=== PATIENT | male | born 1990 | race Native Hawaiian/Other Pacific Islander ===

== ENCOUNTER 2017-04-30 11:34 | Emergency (ER) | payer OTHER ==
[~2017-04-30] VITALS: Ht 180.3 cm; Wt 77.1 kg
[2017-04-30 11:43] VITALS: TEMP 97.8
[2017-04-30 12:10] LABS: PLATELET COUNT 212 K/uL (142-355)
[2017-04-30 12:27] LABS: POTASSIUM 3.1 mmol/L (3.6-5.2); SODIUM 135 mmol/L (136-145)
[2017-04-30 15:37] VITALS: BP 122/78
== END 2017-04-30 15:38 | disposition home or self-care (01) ==
LOC: ED 11:34
DX: R10.9 Unspecified abdominal pain (principal); B96.81 Helicobacter pylori [H. pylori] as the cause of diseases classified elsewhere
CPT/HCPCS: 36415; 80053; 82150; 83690; 85027; 86318; 96365; 99284; J3490

== ENCOUNTER 2017-07-26 15:22 | Emergency (ER) | payer OTHER ==
[2017-07-26 15:29] VITALS: BP 121/66
== END 2017-07-26 15:29 ==
LOC: ED 15:22
DX: R46.89 Other symptoms and signs involving appearance and behavior (principal)
CPT/HCPCS: 99281